=== PATIENT | male | born 1960 | race Caucasian/White ===

== ENCOUNTER 2018-09-04 08:12 | Outpatient (CLI) | payer BC ==
--- NOTE | 2018-09-04 10:08 | MRI ---
MRI LUMBAR SPINE WITHOUT CONTRAST: HISTORY: M54.16, lumbar radiculopathy. COMPARISON: Radiograph from 07/14/2018. FINDINGS: The aortic contour is nonaneurysmal. No retroperitoneal adenopathy. No hydronephrosis. Paraspinal musculature is symmetric. No marrow infiltrative process. The conus medullaris terminates near the superior end plate of L1. Levels are as follows: L1-2: Moderate disk desiccation and circumferential disk bulge. There is a left subforaminal latera l recess posterior disk-osteophyte complex causing moderate left side neural foraminal narrowing. Mi ld right-sided neural foraminal narrowing. Mild effacement of the ventral CSF space with the spinal canal still measuring over a centimeter. Moderate facet arthropathy. L2-3: There are Modic type II end plate changes. Circumferential disk bulge. Moderate facet arthro dontae. A combination of these findings causes moderate bilateral neural foraminal narrowing. The sp inal canal measures approximately 9 mm. L3-4: Moderate degenerative disk space height loss and circumferential disk bulge. Moderate hypertr ophic facet degenerative change. There is abutment of the left exiting nerve root. There is also ab utment of the left traversing nerve root and right traversing nerve root. The spinal canal measures approximately 8 mm. L4-5. Near-complete degenerative disk space height loss. Moderate hypertrophic facet arthropathy. A combination of these findings causes moderate bilateral neural foraminal narrowing with abutment of both exiting and traversing nerve roots. The spinal canal measures approximately 7 mm. L5-S1: There is a generalized facet disk space height loss with a superimposed disk extrusion in the left paracentral lateral recess. This does abut the left S1 nerve root as well as the left S1 nerve root. Moderate to severe left and right-sided neural foraminal narrowing with abutment of the right traversing S1 nerve root. IMPRESSION: Advanced degenerative changes as described above with a superimposed left lateral recess and paracent ral disk extrusion at L5-S1 with multiple nerve root abutment. POS: [facility]
== END 2018-09-04 08:13 | disposition home or self-care (01) ==
LOC: SCSMRI 08:12
PROVIDERS: ATTEND Neurological Surgery
DX: M54.16 Radiculopathy, lumbar region (principal); M47.897 Other spondylosis, lumbosacral region
CPT/HCPCS: 72148

== ENCOUNTER 2019-10-02 17:00 | Outpatient (CLI) | payer OTHER, SELFPAY ==
--- NOTE | 2019-10-02 17:46 | RAD ---
XR Chest Pa Lat STANDARD HISTORY: Cough COMPARISON: None FINDINGS: The heart size is normal. The lungs are well expanded without focal areas of consolidation, pneumothorax or pleural effusions. IMPRESSION: No radiographic evidence of acute cardiopulmonary process.
== END 2019-10-02 17:01 | disposition home or self-care (01) ==
LOC: SCSRAD 17:00
PROVIDERS: ATTEND Family Medicine
DX: R05 Cough (principal)
CPT/HCPCS: 71046